=== PATIENT | female | born 1940 | race Caucasian/White ===

== ENCOUNTER 2016-11-25 18:30 | Emergency (ER) | payer MEDICARE, OTHER ==
[~2016-11-25 18:30] MED LIST: ANOROELLIPTA INH; AT25 PO; BONIVA150 MG PO; CYANO1000T PO; ELIQUIS 5 MG TAB5 MG PO; FISH OIL1200 MG PO; FLOVENT DISK50 MCG INH; KLOR-CON 1010 MEQ PO; L20 PO; LOP25 PO; LORTAB 5 PO; MOBIC15 MG PO; MULTIPLE VIT PO; PEP10 PO; PEPCID40 MG OR; PRIN20 PO; PROAIRRESP INH; SINGULAIR1 PO; TYLENOL ARTH650 MG PO; VITAMIN D31000 UNIT PO; VOLTXR100 PO; ZESTORETIC1 TAB PO; ZOL50 PO; [UNRECOGNIZED DRUG - OTHER] PO
[2016-11-25 19:05] LABS: BASOPHILS 1.1 %; BASOPHILS ABSOLUTE 0.08 10/3/uL (0.0-0.16); EOSINOPHILS 2.1 %; EOSINOPHILS ABSOLUTE 0.16 10/3/uL (0.0-0.53); ER CBC TAT 0 Hrs 05 Mins; HEMATOCRIT 35.3 % (36.0-48.0); HEMOGLOBIN 11.5 g/dL (12.0-16.0); IMMATURE GRANULOCYTES 0.7 %; IMMATURE GRANULOCYTES ABSOLUTE 0.05 10/3/uL (0.0-0.11); LYMPHOCYTES 34.6 %; LYMPHOCYTES ABSOLUTE 2.61 10/3/uL (0.67-4.30); MEAN CORPUS HGB CONC 32.6 g/dL (32.0-36.0); MEAN CORPUSCULAR HEMOGLOB 32.5 pg (26.0-34.0); MEAN CORPUSCULAR VOLUME 99.7 fL (80-100); MEAN PLATELET VOLUME 9.9 fL (9.2-13.0); MONOCYTES 8.6 %; MONOCYTES ABSOLUTE 0.65 10/3/uL (0.21-1.20); NEUTROPHILS 52.9 %; NEUTROPHILS ABSOLUTE 3.99 10/3/uL (2.02-8.40); PLATELET COUNT 414 10/3/uL (150-400); RBC DISTRIBUTION WIDTH 17.4 % (12.0-16.0); RED CELL COUNT 3.54 10/6/uL (4.0-5.6); WHITE BLOOD CELLS 7.5 10/3/uL (4.5-10.5)
[2016-11-25 19:06] LABS: MANUAL DIFF NO %
[2016-11-25 19:14] LABS: INTERNATIONAL NORMAL RATI 1.2 UNITS (-); PARTIAL THROMBO TIME 34.4 SEC (22.5-37.2)
[2016-11-25 19:22] LABS: CALCIUM, SERUM 9.1 MG/DL (8.5-10.4); CHEST PAIN PROFILE TAT 0 Hrs 22 Mins; CHLORIDE, SERUM 109 MMOL/L (96-112); CO2 (CARBON DIOXIDE) 31 MMOL/L (24-34); CREATININE 0.81 MG/DL (0.55-1.02); GFR AFRICAN AMERICAN 82 ML/MIN (>=60); GFR NON AFRICAN AMERICAN 71 ML/MIN (>=60); GLUCOSE, SERUM 97 MG/DL (60-99); POTASSIUM, SERUM 4.1 MMOL/L (3.5-5.3); SODIUM, SERUM 144 MMOL/L (135-148); TROPONIN I <0.02 NG/ML (<0.05)
[2016-11-25 19:24] LABS: BUN (BLOOD UREA NITROGEN) 24 MG/DL (6-23)
[2016-11-26] MEDS ORDERED: FIBERCON PO (13:55)
[2016-11-26] MEDS ORDERED: FLECAINIDE50 MG PO (13:55)
[2016-11-26] MEDS ORDERED: ATRONASAL6 NAS (13:56)
== END 2016-11-25 21:05 | disposition left against medical advice (07) ==
LOC: ER 18:30
PROVIDERS: Emergency Medicine
DX: Z53.21 Procedure and treatment not carried out due to patient leaving prior to being seen by health care provider (principal); Z79.899 Other long term (current) drug therapy
CPT/HCPCS: 71020; 80048; 83735; 83880; 84484; 85025; 85610; 85730; 93005